=== PATIENT | female | born 1990 | race African-American/Black ===

== ENCOUNTER 2018-09-17 01:45 | Emergency (ER) | payer SELFPAY | END 2018-09-17 03:30 | disposition left against medical advice (07) | LOC: ER 01:45 | DX: Z53.21 Procedure and treatment not carried out due to patient leaving prior to being seen by health care provider (principal) ==

== ENCOUNTER 2019-04-13 21:36 | Emergency (ER) | payer OTHER ==
[~2019-04-13] VITALS: Ht 157.5 cm; Wt 65.0 kg
[2019-04-13] MEDS ORDERED: LIDOCAINE HCL/PF 1% 10 MG/ML 5ML VIAL IJ ONE (22:15)
[2019-04-13] MEDS ORDERED: BACITRACIN ZINC OINT UDPKT TOP ONE (22:15)
[2019-04-13 23:54] VITALS: BP 123/74
== END 2019-04-13 23:55 | disposition home or self-care (01) ==
LOC: ER 21:36
DX: S41.112A Laceration without foreign body of left upper arm, initial encounter (principal); S51.812A Laceration without foreign body of left forearm, initial encounter; W26.8XXA Contact with other sharp object(s), not elsewhere classified, initial encounter; Y93.89 Activity, other specified; Y92.018 Other place in single-family (private) house as the place of occurrence of the external cause
CPT/HCPCS: 12002; 99283; J3490; Z7610

== ENCOUNTER 2019-05-27 01:45 | Emergency (ER) | payer OTHER ==
[~2019-05-27] VITALS: Ht 157.5 cm; Wt 66.0 kg
[2019-05-27 01:58] VITALS: BP 135/76
== END 2019-05-27 02:24 | disposition left against medical advice (07) ==
LOC: ER 01:45
DX: Z53.21 Procedure and treatment not carried out due to patient leaving prior to being seen by health care provider (principal)